=== PATIENT | male | born 1985 | race Caucasian/White ===

== ENCOUNTER 2021-03-23 08:59 | Emergency (ER) | payer SELFPAY ==
[2021-03-23 09:15] VITALS: BP 122/78
[2021-03-23 10:18] LABS: Eosinophils # (Auto) 0.2 K/mm3 (0.0-0.4); Eosinophils % (Auto) 4.6 % (0.0-4.3); Hemoglobin 15.5 gm/dl (11.8-15.2); Lymphocytes # (Auto) 1.2 K/mm3 (1.2-5.4); Mean Corpuscular HGB Conc 34 % (32-34); Mean Corpuscular Volume 83 fl (84-94); Monocytes # (Auto) 0.4 K/mm3 (0.0-0.8); Monocytes % (Auto) 8.7 % (0.0-7.3); Platelet Count 161 K/mm3 (140-440); Red Blood Count 5.57 M/mm3 (3.65-5.03)
[2021-03-23 10:33] LABS: Alanine Aminotransferase 27 units/L (7-56); Albumin 4.4 g/dL (3.9-5); BUN/Creatinine Ratio 11; Blood Urea Nitrogen 10 mg/dL (9-20); Calcium 9.1 mg/dL (8.4-10.2); Hemolysis Index 13
--- NOTE | 2021-03-23 11:36 | Emergency Department Report ---
ED Abdominal Pain HPI - General Chief Complaint: Abdominal Pain Stated Complaint: STOMACH/CHEST PAIN Time Seen by Provider: 03/23/21 11:12 Source: patient, family Mode of arrival: Ambulatory Limitations: Language Barrier - History of Present Illness Initial Comments: Israeli language interpretation by patient's relative with patient's permission Patient is a 35-year-old male presents emergency room complaints of left lower quadrant abdominal pain that began 2 days ago. He states he has had some difficulty with bowel movements but was able to have a bowel movement this morning. He has associated nausea and increased gas. Denies ever having this pain in the past. He denies any fever, vomiting, diarrhea, hematochezia, melena, hematemesis, urinary symptoms, pus in the stool. No past medical history. No allergies to medications. He recently traveled here from [facility]. He is a non-smoker and nondrinker. He denies any past surgical history. - Related Data Previous Rx's Medication Instructions Recorded Last Taken Type Docusate Sodium [Colace] 100 mg PO BID PRN #30 capsule 03/23/21 Unknown Rx Famotidine [Pepcid] 40 mg PO QHS #30 tablet 03/23/21 Unknown Rx Sucralfate [Carafate] 1 gm PO ACHS 7 Days #21 tablet 03/23/21 Unknown Rx Allergies Allergy/AdvReac Type Severity Reaction Status Date / Time No Known Allergies Allergy Unverified 03/23/21 09:09 ED Review of Systems ROS: Stated complaint: STOMACH/CHEST PAIN Other details as noted in HPI Comment: All other systems reviewed and negative ED Past Medical Hx - Past Medical History Previous Medical History?: No - Surgical History Past Surgical History?: No - Social History Smoking Status: Never Smoker Substance Use Type: None - Medications Home Medications: Home Medications Medication Instructions Recorded Confirmed Last Taken Type Docusate Sodium [Colace] 100 mg PO BID PRN #30 capsule 03/23/21 Unknown Rx Famotidine [Pepcid] 40 mg PO QHS #30 tablet 03/23/21 Unknown Rx Sucralfate [Carafate] 1 gm PO ACHS 7 Days #21 tablet 03/23/21 Unknown Rx ED Physical Exam - General Limitations: Language Barrier General appearance: alert, in no apparent distress - Head Head exam: Present: atraumatic, normocephalic - Eye Eye exam: Present: normal appearance - ENT ENT exam: Present: mucous membranes moist - Respiratory Respiratory exam: Present: normal lung sounds bilaterally. Absent: respiratory distress, wheezes, rales, rhonchi, stridor, chest wall tenderness, accessory muscle use, decreased breath sounds, prolonged expiratory - Cardiovascular Cardiovascular Exam: Present: regular rate, normal rhythm, normal heart sounds. Absent: systolic murmur, diastolic murmur, rubs, gallop - GI/Abdominal GI/Abdominal exam: Present: soft, tenderness (LLQ abd ttp ), normal bowel sounds. Absent: distended, guarding, rebound, rigid - Neurological Exam Neurological exam: Present: alert, oriented X3 - Psychiatric Psychiatric exam: Present: normal affect, normal mood - Skin Skin exam: Present: warm, dry, intact ED Course Vital Signs 03/23/21 09:11 Temperature 98.0 F Pulse Rate 79 Respiratory 18 Rate Blood Pressure 122/78 O2 Sat by Pulse 98 Oximetry - Phlebotomy Reason for Blood Draw by MD: other (nursing staff unavailable) Obtained Bloods via: peripheral vein stick Estimated cc's Blood Obtained: 0 Additional Comments: Skin prepped, 20-gauge needle used for IV insertion, IV inserted in the right antecubital region, no complications, IV secured ED Medical Decision Making - Lab Data Result diagrams: 03/23/21 09:50 03/23/21 09:50 Lab Results 03/23/21 03/23/21 03/23/21 Range/Units 09:50 09:50 11:35 WBC 4.2 L (4.5-11.0) K/mm3 RBC 5.57 H (3.65-5.03) M/mm3 Hgb 15.5 H (11.8-15.2) gm/dl Hct 46.0 H (35.5-45.6) % MCV 83 L (84-94) fl MCH 28 (28-32) pg MCHC 34 (32-34) % RDW 13.0 L (13.2-15.2) % Plt Count 161 (140-440) K/mm3 Lymph % (Auto) 28.0 (13.4-35.0) % Lee % (Auto) 8.7 H (0.0-7.3) % Eos % (Auto) 4.6 H (0.0-4.3) % Baso % (Auto) 1.0 (0.0-1.8) % Lymph # (Auto) 1.2 (1.2-5.4) K/mm3 Lee # (Auto) 0.4 (0.0-0.8) K/mm3 Eos # (Auto) 0.2 (0.0-0.4) K/mm3 Baso # (Auto) 0.0 (0.0-0.1) K/mm3 Seg Neutrophils % 57.7 (40.0-70.0) % Seg Neutrophils # 2.4 (1.8-7.7) K/mm3 Sodium 139 (137-145) mmol/L Potassium 4.2 (3.6-5.0) mmol/L Chloride 101.1 (98-107) mmol/L Carbon Dioxide 31 H (22-30) mmol/L Anion Gap 11 mmol/L BUN 10 (9-20) mg/dL Creatinine 0.9 (0.8-1.3) mg/dL Estimated GFR > 60 ml/min BUN/Creatinine Ratio 11 % Glucose 87 (75-100) mg/dL Calcium 9.1 (8.4-10.2) mg/dL Total Bilirubin 0.30 (0.1-1.2) mg/dL AST 21 (5-40) units/L ALT 27 (7-56) units/L Alkaline Phosphatase 75 (35-129) units/L Total Protein 6.6 (6.3-8.2) g/dL Albumin 4.4 (3.9-5) g/dL Albumin/Globulin Ratio 2.0 % Lipase 21 (13-60) units/L Urine Color (Yellow) Urine Turbidity (Clear) Urine pH (5.0-7.0) Ur Specific [place] (1.003-1.030) Urine Protein (Negative) mg/dL Urine Glucose (UA) (Negative) mg/dL Urine Ketones (Negative) mg/dL Urine Blood (Negative) Urine Nitrite (Negative) Urine Bilirubin (Negative) Urine Urobilinogen (<2.0) mg/dL Ur Leukocyte Esterase (Negative) Urine WBC (Auto) Urine RBC (Auto) (0.0-6.0) /HPF 03/23/21 Range/Units Unknown WBC (4.5-11.0) K/mm3 RBC (3.65-5.03) M/mm3 Hgb (11.8-15.2) gm/dl Hct (35.5-45.6) % MCV (84-94) fl MCH (28-32) pg MCHC (32-34) % RDW (13.2-15.2) % Plt Count (140-440) K/mm3 Lymph % (Auto) (13.4-35.0) % Lee % (Auto) (0.0-7.3) % Eos % (Auto) (0.0-4.3) % Baso % (Auto) (0.0-1.8) % Lymph # (Auto) (1.2-5.4) K/mm3 Lee # (Auto) (0.0-0.8) K/mm3 Eos # (Auto) (0.0-0.4) K/mm3 Baso # (Auto) (0.0-0.1) K/mm3 Seg Neutrophils % (40.0-70.0) % Seg Neutrophils # (1.8-7.7) K/mm3 Sodium (137-145) mmol/L Potassium (3.6-5.0) mmol/L Chloride (98-107) mmol/L Carbon Dioxide (22-30) mmol/L Anion Gap mmol/L BUN (9-20) mg/dL Creatinine (0.8-1.3) mg/dL Estimated GFR ml/min BUN/Creatinine Ratio % Glucose (75-100) mg/dL Calcium (8.4-10.2) mg/dL Total Bilirubin (0.1-1.2) mg/dL AST (5-40) units/L ALT (7-56) units/L Alkaline Phosphatase (35-129) units/L Total Protein (6.3-8.2) g/dL Albumin (3.9-5) g/dL Albumin/Globulin Ratio % Lipase (13-60) units/L Urine Color Colorless (Yellow) Urine Turbidity Clear (Clear) Urine pH 8.0 H (5.0-7.0) Ur Specific [place] 1.002 L (1.003-1.030) Urine Protein <15 mg/dl (Negative) mg/dL Urine Glucose (UA) Neg (Negative) mg/dL Urine Ketones Neg (Negative) mg/dL Urine Blood Neg (Negative) Urine Nitrite Neg (Negative) Urine Bilirubin Neg (Negative) Urine Urobilinogen < 2.0 (<2.0) mg/dL Ur Leukocyte Esterase Neg (Negative) Urine WBC (Auto) Not Reportable Urine RBC (Auto) 1.0 (0.0-6.0) /HPF - EKG Data EKG shows normal: sinus rhythm, axis, intervals, QRS complexes, ST-T waves Rate: normal - Radiology Data Radiology results: report reviewed Ordering Physician: KATH MARTINES Date of Service: 03/23/21 Procedure(s): CT abdomen pelvis w con Accession Number(s): [id number] cc: KATH MARTINES CT abdomen pelvis w con INDICATION: LLQ abd pain, nausea. COMPARISON: None TECHNIQUE: Abdominal and pelvic CT exam performed. All CT scans at this location are performed using CT dose reduction for ALARA by means of automated exposure control. FINDINGS: CT ABDOMEN and PELVIS: Lung Bases: No significant abnormality. Liver: No significant abnormality. Biliary: No significant abnormality. Spleen: No significant abnormality. Pancreas: No significant abnormality. Adrenals: No significant abnormality. Kidneys: No significant abnormality. Subcentimeter hypoattenuating right midpole renal cyst. Lymphatics: No lymphadenopathy. Vasculature: No significant abnormality. Bowel: No significant abnormality. Normal appendix. Pelvis: No significant abnormality. Osseous Structures: No aggressive osseous lesion. Additional Findings: None IMPRESSION: 1. No significant abnormality of the abdomen or pelvis. Signer Name: Sreedhar Ferris MD Signed: 03/23/2021 12:28 PM Workstation Name: [id number] Transcribed By: CS Dictated By: Sreedhar Ferris MD Electronically Authenticated By: Sreedhar Ferris MD Signed Date/Time: 03/23/211227 DD/ 25 TD/TT: Print - Medical Decision Making Israeli language interpretation by patient's relative with patient's permission Patient is a 35-year-old male presents emergency room complaints of left lower quadrant abdominal pain that began 2 days ago. He states he has had some difficulty with bowel movements but was able to have a bowel movement this morning. He has associated nausea and increased gas. Denies ever having this pain in the past. He denies any fever, vomiting, diarrhea, hematochezia, melena, hematemesis, urinary symptoms, pus in the stool. No past medical history. No allergies to medications. He recently traveled here from [facility]. He is a non-smoker and nondrinker. He denies any past surgical history. Vitals are normal. On exam: Left lower quadrant tenderness outpatient, no guarding, no rebound, no rigidity, no bowel sounds, no peritoneal signs. EKG ordered prior to my examination is within normal limits, patient denies any chest pain, he states that 2 years ago he had chest pain with this abdominal pain but has not been experiencing chest pain. Labs are stable. UA without evidence of UTI. CT abdomen pelvis with IV contrast: 1. No significant abnormality of the abdomen or pelvis. IV inserted and removed by myself without any complications. Given prescription for medications. Discussed the importance of primary care and GI follow-up. Patient states that he drinks a lot of orange juice, encouraged water intake and decreasing orange juice given t he high acidity. Advised patient Please take medication as prescribed. Please increase your fluid intake. Follow-up with your primary care doctor. Follow-up with a GI doctor. Return to emergency room for any new or worse symptoms. Critical care attestation.: If time is entered above; I have spent that time in minutes in the direct care of this critically ill patient, excluding procedure time. ED Disposition Clinical Impression: LLQ abdominal pain Disposition: DC- TO HOME OR SELFCARE Is pt being admited?: No Does the pt Need Aspirin: No Condition: Stable Instructions: Abdominal Pain, Adult Additional Instructions: Please take medication as prescribed. Please increase your fluid intake. Follow-up with your primary care doctor. Follow-up with a GI doctor. Return to emergency room for any new or worse symptoms. Prescriptions: Famotidine [Pepcid] 40 mg PO QHS #30 tablet Sucralfate [Carafate] 1 gm PO ACHS 7 Days #21 tablet Docusate Sodium [Colace] 100 mg PO BID PRN #30 capsule PRN Reason: constipation Referrals: NOELLE HINOJOAS MD [Staff Physician] - 2-3 Days [facility] [Provider Group] - 2-3 Days [facility] [Provider Group] - 2-3 Days Time of Disposition: 12:46 Print Language: ARMENIAN
[2021-03-23 12:03] LABS: Bilirubin,Urine NEG (Negative); Blood,Urine NEG (Negative); Color,Urine Colorless (Yellow); Protein,Urine <15 mg/dL mg/dL (Negative); Urobilinogen,Urine < 2.0 mg/dL (<2.0)
--- NOTE | 2021-03-23 12:44 | Cat Scan Report ---
CT abdomen pelvis w con INDICATION: LLQ abd pain, nausea. COMPARISON: None TECHNIQUE: Abdominal and pelvic CT exam performed. All CT scans at this location are performed using CT dose reduction for ALARA by means of automated exposure control. FINDINGS: CT ABDOMEN and PELVIS: Lung Bases: No significant abnormality. Liver: No significant abnormality. Biliary: No significant abnormality. Spleen: No significant abnormality. Pancreas: No significant abnormality. Adrenals: No significant abnormality. Kidneys: No significant abnormality. Subcentimeter hypoattenuating right midpole renal cyst. Lymphatics: No lymphadenopathy. Vasculature: No significant abnormality. Bowel: No significant abnormality. Normal appendix. Pelvis: No significant abnormality. Osseous Structures: No aggressive osseous lesion. Additional Findings: None IMPRESSION: 1. No significant abnormality of the abdomen or pelvis. Signer Name: Sreedhar Ferris MD Signed: 03/23/2021 12:28 PM Workstation Name: [id number]
--- NOTE | 2021-03-24 17:47 | Electrocardiograph Report ---
[facility] Test Date: 2021-03-23 Test Time: 09:18:15 Pat Name: PRABHU CORNEJO Department: Room: Gender: M Detailer: CAIO : 1985 Requested By: ED DOC Order Number: [id number] Reading MD: Adolfo Forte Measurements Intervals [place] Rate: 79 P: 78 MN: 166 QRS: 61 QRSD: 73 T: 41 QT: 345 QTc: 397 Interpretive Statements Sinus rhythm No previous ECG available for comparison Electronically Signed On 03-24-2021 17:46:49 EDT by Adolfo Forte
== END 2021-03-23 13:00 | disposition home or self-care (01) ==
LOC: ED 08:59
DX: R10.32 Left lower quadrant pain (principal)
CPT/HCPCS: 36415; 74177; 80053; 81001; 83690; 85025; 93005; 99284; Q9967